=== PATIENT | female | born 1965 | race Two or more races ===

== ENCOUNTER 2021-10-30 11:28 | Outpatient (CLI) | payer OTHER | END 2021-10-30 11:45 | disposition home or self-care (01) | LOC: MRI 11:28 | DX: M43.17 Spondylolisthesis, lumbosacral region (principal); M54.16 Radiculopathy, lumbar region | CPT/HCPCS: 72148; 72158 ==

== ENCOUNTER 2021-11-07 10:29 | Outpatient (CLI) | payer OTHER | END 2021-11-07 10:30 | disposition home or self-care (01) | LOC: LAB 10:29 | DX: I10 Essential (primary) hypertension (principal); Z13.0 Encounter for screening for diseases of the blood and blood-forming organs and certain disorders involving the immune mechanism; E78.2 Mixed hyperlipidemia; R94.6 Abnormal results of thyroid function studies; M79.7 Fibromyalgia; M15.8 Other polyosteoarthritis; E53.8 Deficiency of other specified B group vitamins; M06.4 Inflammatory polyarthropathy; E55.9 Vitamin D deficiency, unspecified; E78.5 Hyperlipidemia, unspecified ==

== ENCOUNTER 2021-11-16 09:29 | Outpatient (CLI) | payer OTHER | END 2021-11-16 09:40 | disposition home or self-care (01) | LOC: MAMO-SONO 09:29 | PROVIDERS: ATTEND Obstetrics & Gynecology | DX: N64.59 Other signs and symptoms in breast (principal); Z12.31 Encounter for screening mammogram for malignant neoplasm of breast; N60.32 Fibrosclerosis of left breast ==

== ENCOUNTER 2022-06-22 11:40 | Outpatient (CLI) | payer OTHER | END 2022-06-22 11:43 | disposition home or self-care (01) | LOC: RAD 11:40 | DX: M43.26 Fusion of spine, lumbar region (principal) ==

== ENCOUNTER 2022-11-01 07:45 | Outpatient (CLI) | payer OTHER | END 2022-11-01 08:00 | disposition home or self-care (01) | LOC: RAD 07:45 | PROVIDERS: ATTEND Orthopaedic Surgery Foot and Ankle Surgery | DX: M43.26 Fusion of spine, lumbar region (principal) ==

== ENCOUNTER 2022-11-28 07:19 | Outpatient (CLI) | payer OTHER | END 2022-11-28 07:20 | disposition home or self-care (01) | LOC: NUCLEAR 07:19 | DX: M19.90 Unspecified osteoarthritis, unspecified site (principal) | CPT/HCPCS: 78315; A9503 ==

== ENCOUNTER 2022-11-28 09:25 | Outpatient (CLI) | payer OTHER | END 2022-11-28 10:07 | disposition home or self-care (01) | LOC: RAD 09:25 | DX: M19.90 Unspecified osteoarthritis, unspecified site (principal); M25.559 Pain in unspecified hip ==

== ENCOUNTER 2022-12-12 13:00 | Outpatient (CLI) | payer OTHER | END 2022-12-12 13:02 | disposition home or self-care (01) | LOC: NUCLEAR 13:00 | DX: Z13.820 Encounter for screening for osteoporosis (principal) ==

== ENCOUNTER 2022-12-12 13:51 | Outpatient (CLI) | payer OTHER | END 2022-12-12 14:02 | disposition home or self-care (01) | LOC: MRI 13:51 | PROVIDERS: ATTEND Orthopaedic Surgery Foot and Ankle Surgery | DX: M43.21 Fusion of spine, occipito-atlanto-axial region (principal) | CPT/HCPCS: 72148 ==

== ENCOUNTER 2023-02-05 07:23 | Outpatient (CLI) | payer OTHER | END 2023-02-05 07:26 | disposition home or self-care (01) | LOC: MAMO-SONO 07:23 | DX: N64.4 Mastodynia (principal) ==

== ENCOUNTER 2023-03-04 07:22 | Outpatient (CLI) | payer OTHER | END 2023-03-04 07:33 | disposition home or self-care (01) | LOC: RAD 07:22 | DX: M25.522 Pain in left elbow (principal); M79.632 Pain in left forearm; M25.532 Pain in left wrist ==

== ENCOUNTER 2023-05-02 08:01 | Outpatient (CLI) | payer OTHER | END 2023-05-02 08:04 | disposition home or self-care (01) | LOC: LAB 08:01 | DX: E78.2 Mixed hyperlipidemia (principal); E53.8 Deficiency of other specified B group vitamins ==

== ENCOUNTER → 2023-05-02 | Outpatient (CLI) | payer OTHER | END | disposition home or self-care (01) | LOC: RAD 08:50 | DX: M25.572 Pain in left ankle and joints of left foot (principal) ==

== ENCOUNTER → 2023-12-20 06:22 | Outpatient (CLI) | payer OTHER ==
[2023-12-20 07:29] LABS: HEMATOCRIT 35.3 % (36.0-45.00); HEMOGLOBIN 12.5 g/dL (12.0-15.00); MEAN CELL VOLUME 90.2 fL (80.00-100.00); MEAN CORPUSCULAR HEMOGLOBIN 31.9 pg (27.00-32.0); MEAN CORPUSCULAR HGB CONC 35.3 g/dl (32.0-36.0); PLATELET COUNT 258 K/uL (150-450); RED BLOOD COUNT 3.92 M/uL (4.00-6.00); RED CELL DISTRIBUTION WIDTH 12.8 % (11.5-14.5)
[2023-12-20 08:00] LABS: URINE APPEARANCE Clear; URINE BILIRRUBIN Negative (NEGATIVE); URINE BLOOD Negative; URINE COLOR Yellow; URINE GLUCOSE Negative (NEGATIVE); URINE LEUKOCYTE Moderate; URINE NITRATE Negative; URINE PROTEIN Negative (NEGATIVE); URINE UROBILINOGEN 0.2 E.U./dl
[2023-12-20 08:05] LABS: URINE BACTERIA 282.2 uL (0.0-1933); URINE RBC 31.6 uL (0.0-20.8); URINE WBC 40.8 uL (0.0-23.2)
[2023-12-20 08:12] LABS: ALBUMIN 3.7 gm/dL (3.4-5.0); BILIRUBIN TOTAL 0.66 mg/dL (0.3-1.2); CALCIUM 8.8 mg/dL (8.5-10.1); CHOL HDL RATIO 3.7 (0-5.0); CREATININE SERUM 0.63 mg/dL (0.55-1.02); GFR 97.4; GLOBULINA 2.8 G/DL (2.4-3.5); POTASSIUM 3.97 mEq/L (3.5-5.1); TOTAL PROTEIN 6.5 gm/dL (6.4-8.2); TSH 2.81 uIU/mL (0.358-3.74)
[2023-12-20 11:20] LABS: FOLIC ACID > 20.00 ng/ml (4.78-20)
== END | disposition home or self-care (01) ==
LOC: LAB 06:22
DX: Z13.0 Encounter for screening for diseases of the blood and blood-forming organs and certain disorders involving the immune mechanism (principal); E78.2 Mixed hyperlipidemia; Z13.1 Encounter for screening for diabetes mellitus; I10 Essential (primary) hypertension; Z12.11 Encounter for screening for malignant neoplasm of colon; E55.9 Vitamin D deficiency, unspecified; E53.8 Deficiency of other specified B group vitamins; M79.7 Fibromyalgia

== ENCOUNTER → 2023-12-23 | Outpatient (CLI) | payer OTHER ==
[2023-12-23 12:05] LABS: ob NEGATIVE (NEGATIVE)
== END | disposition home or self-care (01) ==
LOC: LAB 07:24
DX: Z13.0 Encounter for screening for diseases of the blood and blood-forming organs and certain disorders involving the immune mechanism (principal); E78.2 Mixed hyperlipidemia; Z13.1 Encounter for screening for diabetes mellitus; I10 Essential (primary) hypertension; Z12.11 Encounter for screening for malignant neoplasm of colon; E55.9 Vitamin D deficiency, unspecified; E53.8 Deficiency of other specified B group vitamins; M79.7 Fibromyalgia

== ENCOUNTER 2024-01-30 09:49 | Outpatient (CLI) | payer OTHER | END 2024-01-30 09:54 | disposition home or self-care (01) | LOC: RAD 09:49 | DX: M25.511 Pain in right shoulder (principal); M25.512 Pain in left shoulder ==

== ENCOUNTER 2024-06-27 08:40 | Outpatient (CLI) | payer OTHER ==
[2024-06-27 09:16] LABS: URINE APPEARANCE Clear; URINE BILIRRUBIN Negative (NEGATIVE); URINE BLOOD Negative; URINE COLOR Dark Yellow; URINE GLUCOSE Negative (NEGATIVE); URINE LEUKOCYTE Small; URINE NITRATE Negative; URINE PROTEIN Negative (NEGATIVE); URINE UROBILINOGEN 0.2 E.U./dl
[2024-06-27 09:20] LABS: URINE BACTERIA 70.5 uL (0.0-1933); URINE EPITHELIAL CELLS 15.2 uL (0.0-38.8); URINE RBC 13.2 uL (0.0-20.8); URINE WBC 21.1 uL (0.0-23.2)
[2024-06-27 09:30] LABS: HEMATOCRIT 38.2 % (36.0-45.00); HEMOGLOBIN 13.4 g/dL (12.0-15.00); MEAN CELL VOLUME 90.3 fL (80.00-100.00); MEAN CORPUSCULAR HEMOGLOBIN 31.6 pg (27.00-32.0); MEAN CORPUSCULAR HGB CONC 34.9 g/dl (32.0-36.0); PLATELET COUNT 270 K/uL (150-450); RED BLOOD COUNT 4.23 M/uL (4.00-6.00); RED CELL DISTRIBUTION WIDTH 13.1 % (11.5-14.5)
[2024-06-27 10:21] LABS: BILIRUBIN TOTAL 0.61 mg/dL (0.3-1.2); CHOL HDL RATIO 3.1 (0-5.0); CREATININE SERUM 0.59 mg/dL (0.55-1.02); GFR 104.69; POTASSIUM 4.46 mEq/L (3.5-5.1); TSH 3.99 uIU/mL (0.358-3.74)
== END 2024-06-27 08:46 | disposition home or self-care (01) ==
LOC: LAB 08:40
DX: Z13.0 Encounter for screening for diseases of the blood and blood-forming organs and certain disorders involving the immune mechanism (principal); E78.2 Mixed hyperlipidemia; R73.9 Hyperglycemia, unspecified; I10 Essential (primary) hypertension; R94.6 Abnormal results of thyroid function studies

== ENCOUNTER 2024-07-08 07:09 | Outpatient (CLI) | payer OTHER | END 2024-07-08 07:15 | disposition home or self-care (01) | LOC: MAMO-SONO 07:09 | DX: N64.4 Mastodynia (principal); Z12.39 Encounter for other screening for malignant neoplasm of breast ==

== ENCOUNTER 2024-08-12 06:51 | Outpatient (CLI) | payer OTHER ==
[2024-08-12 07:38] LABS: URINE APPEARANCE Clear; URINE BILIRRUBIN Negative (NEGATIVE); URINE BLOOD Negative; URINE COLOR Dark Yellow; URINE GLUCOSE Negative (NEGATIVE); URINE KETONE Negative (NEGATIVE); URINE LEUKOCYTE Moderate; URINE NITRATE Negative; URINE PROTEIN Negative (NEGATIVE); URINE UROBILINOGEN 0.2 E.U./dl
[2024-08-12 07:41] LABS: URINE BACTERIA 84.3 uL (0.0-1933); URINE EPITHELIAL CELLS 10.4 uL (0.0-38.8)
[2024-08-12 08:16] LABS: HEMOGLOBIN 12.6 g/dL (12.0-15.00); MEAN CELL VOLUME 93.5 fL (80.00-100.00); MEAN CORPUSCULAR HEMOGLOBIN 32.7 pg (27.00-32.0); MEAN CORPUSCULAR HGB CONC 34.9 g/dl (32.0-36.0); PLATELET COUNT 267 K/uL (150-450); RED BLOOD COUNT 3.85 M/uL (4.00-6.00)
[2024-08-12 08:40] LABS: ERYTHROCYTE SEDIMENTATION RATE < 1 mm/hr
[2024-08-12 09:00] LABS: ALBUMIN 3.9 gm/dL (3.4-5.0); ALKALINE PHOSPHATASE 56 U/L (50-136); ALT/SGPT 24 U/L (12-78); ANION GAP 7 (10.0-20.0); AST/SGOT 11 U/L (15-37); BILIRUBIN TOTAL 0.71 mg/dL (0.3-1.2); BLOOD UREA NITROGEN 12 mg/dL (7-18); BUN CREA RATIO 18 (7.0-25.0); CALCIUM 9.3 mg/dL (8.5-10.1); CARBON DIOXIDE 31 mEq/L (21-32); CHLORIDE 110 mmol/L (98-107); CREATININE SERUM 0.68 mg/dL (0.55-1.02); GFR 88.87; GLOBULINA 3.1 G/DL (2.4-3.5); GLUCOSE FASTING 100 mg/dL (65-100); OSMOLALITY SERUM 287 MOSM/KG (275-295); POTASSIUM 4.37 mEq/L (3.5-5.1); SODIUM 144 mmol/L (136-145)
[2024-08-12 09:02] LABS: C-REACTIVE PROTEIN < 0.29 MG/DL (0.00-0.29)
== END 2024-08-12 06:52 | disposition home or self-care (01) ==
LOC: LAB 06:51
DX: M25.50 Pain in unspecified joint (principal); M06.9 Rheumatoid arthritis, unspecified

== ENCOUNTER → 2024-10-03 09:27 | Outpatient (CLI) | payer OTHER ==
[2024-10-03 11:11] LABS: HEMATOCRIT 40.8 % (36.0-45.00); HEMOGLOBIN 14.1 g/dL (12.0-15.00); MEAN CELL VOLUME 91.2 fL (80.00-100.00); MEAN CORPUSCULAR HEMOGLOBIN 31.4 pg (27.00-32.0); MEAN CORPUSCULAR HGB CONC 34.5 g/dl (32.0-36.0); PLATELET COUNT 284 K/uL (150-450); RED BLOOD COUNT 4.47 M/uL (4.00-6.00); RED CELL DISTRIBUTION WIDTH 12.8 % (11.5-14.5)
[2024-10-03 11:18] LABS: PH,URINE 5.5 (5.0-8.0); URINE APPEARANCE Clear; URINE BILIRRUBIN Small (NEGATIVE); URINE BLOOD Negative; URINE COLOR Dark Yellow; URINE GLUCOSE Negative (NEGATIVE); URINE KETONE Trace (NEGATIVE); URINE LEUKOCYTE Moderate; URINE NITRATE Negative; URINE PROTEIN Trace (NEGATIVE); URINE UROBILINOGEN 0.2 E.U./dl
[2024-10-03 11:47] LABS: ALBUMIN 4.3 gm/dL (3.4-5.0); ALKALINE PHOSPHATASE 72 U/L (50-136); ALT/SGPT 26 U/L (12-78); ANION GAP 8 (10.0-20.0); AST/SGOT 14 U/L (15-37); BILIRUBIN TOTAL 0.72 mg/dL (0.3-1.2); BLOOD UREA NITROGEN 10 mg/dL (7-18); BUN CREA RATIO 13 (7.0-25.0); CALCIUM 9.9 mg/dL (8.5-10.1); CARBON DIOXIDE 30 mEq/L (21-32); CHLORIDE 108 mmol/L (98-107); CREATININE SERUM 0.76 mg/dL (0.55-1.02); GFR 78.16; GLUCOSE FASTING 92 mg/dL (65-100); OSMOLALITY SERUM 282 MOSM/KG (275-295); POTASSIUM 4.33 mEq/L (3.5-5.1); SODIUM 142 mmol/L (136-145); TOTAL PROTEIN 7.3 gm/dL (6.4-8.2)
[2024-10-03 11:48] LABS: C-REACTIVE PROTEIN < 0.29 MG/DL (0.00-0.29)
[2024-10-03 11:56] LABS: URINE BACTERIA 302.3 uL (0.0-1933); URINE EPITHELIAL CELLS 19.3 uL (0.0-38.8); URINE RBC 14.8 uL (0.0-20.8); URINE WBC 83.9 uL (0.0-23.2)
[2024-10-03 12:03] LABS: ERYTHROCYTE SEDIMENTATION RATE 1 mm/hr
== END | disposition home or self-care (01) ==
LOC: LAB 09:27
DX: M25.50 Pain in unspecified joint (principal); M06.9 Rheumatoid arthritis, unspecified

== ENCOUNTER 2024-12-25 07:14 | Outpatient (CLI) | payer OTHER ==
[2024-12-25 08:06] LABS: HEMATOCRIT 37.7 % (36.0-45.00); HEMOGLOBIN 13.3 g/dL (12.0-15.00); MEAN CORPUSCULAR HGB CONC 35.2 g/dl (32.0-36.0); PLATELET COUNT 256 K/uL (150-450); RED BLOOD COUNT 4.14 M/uL (4.00-6.00); RED CELL DISTRIBUTION WIDTH 13.4 % (11.5-14.5)
[2024-12-25 08:15] LABS: ERYTHROCYTE SEDIMENTATION RATE < 1 mm/hr
[2024-12-25 08:18] LABS: PH,URINE 5.5 (5.0-8.0); URINE APPEARANCE Clear; URINE BILIRRUBIN Negative (NEGATIVE); URINE BLOOD Negative; URINE COLOR Dark Yellow; URINE GLUCOSE Negative (NEGATIVE); URINE KETONE Negative (NEGATIVE); URINE LEUKOCYTE Small; URINE NITRATE Negative; URINE PROTEIN Negative (NEGATIVE); URINE UROBILINOGEN 0.2 E.U./dl
[2024-12-25 08:22] LABS: URINE BACTERIA 274.1 uL (0.0-1933); URINE EPITHELIAL CELLS 13.2 uL (0.0-38.8); URINE RBC 10.3 uL (0.0-20.8); URINE WBC 14.7 uL (0.0-23.2)
[2024-12-25 08:29] LABS: URINE CAST 0.44 uL (0.0-1.40)
[2024-12-25 09:25] LABS: ALBUMIN 3.8 gm/dL (3.4-5.0); ALKALINE PHOSPHATASE 63 U/L (50-136); ALT/SGPT 21 U/L (12-78); ANION GAP 7 (10.0-20.0); AST/SGOT 9 U/L (15-37); BILIRUBIN TOTAL 0.65 mg/dL (0.3-1.2); BLOOD UREA NITROGEN 12 mg/dL (7-18); BUN CREA RATIO 18 (7.0-25.0); CALCIUM 9.2 mg/dL (8.5-10.1); CARBON DIOXIDE 31 mEq/L (21-32); CHLORIDE 110 mmol/L (98-107); CHOL HDL RATIO 2.5 (0-5.0); CHOLESTEROL 180 mg/dL (0-200); CREATININE SERUM 0.68 mg/dL (0.55-1.02); GFR 88.87; GLUCOSE FASTING 88 mg/dL (65-100); HDL 72 mg/dl (40-60); LDL 82 mg/dl (0-130); OSMOLALITY SERUM 286 MOSM/KG (275-295); POTASSIUM 4.25 mEq/L (3.5-5.1); SODIUM 144 mmol/L (136-145); TOTAL PROTEIN 6.8 gm/dL (6.4-8.2); TRIGLYCERIDES 129 mg/dL (0-150); VLDL 25 (0-39)
[2024-12-25 09:26] LABS: C-REACTIVE PROTEIN < 0.29 MG/DL (0.00-0.29)
[2024-12-25 09:38] LABS: ob NEGATIVE (NEGATIVE)
[2024-12-25 11:24] LABS: FOLIC ACID 16.32 ng/ml (4.78-20); VITAMIN D3 25 HYDROXY 37.28 ng/ml (30-120)
== END 2024-12-25 07:15 | disposition home or self-care (01) ==
LOC: LAB 07:14
DX: R73.9 Hyperglycemia, unspecified (principal); Z13.0 Encounter for screening for diseases of the blood and blood-forming organs and certain disorders involving the immune mechanism; E78.2 Mixed hyperlipidemia; R94.6 Abnormal results of thyroid function studies; Z12.11 Encounter for screening for malignant neoplasm of colon; E55.9 Vitamin D deficiency, unspecified; E53.8 Deficiency of other specified B group vitamins; M06.9 Rheumatoid arthritis, unspecified

== ENCOUNTER 2025-02-24 07:21 | Outpatient (CLI) | payer OTHER | END 2025-02-24 07:25 | disposition home or self-care (01) | LOC: SONOGRAMA 07:21 | DX: N83.202 Unspecified ovarian cyst, left side (principal); N83.201 Unspecified ovarian cyst, right side ==

== ENCOUNTER 2025-03-08 09:25 | Outpatient (CLI) | payer OTHER | END 2025-03-08 09:26 | disposition home or self-care (01) | LOC: NUCLEAR 09:25 | PROVIDERS: ATTEND Obstetrics & Gynecology | DX: M81.0 Age-related osteoporosis without current pathological fracture (principal) ==

== ENCOUNTER 2025-04-09 08:54 | Outpatient (CLI) | payer OTHER ==
[2025-04-09 09:40] LABS: PH,URINE 6.5 (5.0-8.0); URINE APPEARANCE Clear; URINE BILIRRUBIN Negative (NEGATIVE); URINE BLOOD Negative; URINE COLOR Yellow; URINE GLUCOSE Negative (NEGATIVE); URINE KETONE Negative (NEGATIVE); URINE LEUKOCYTE Trace; URINE NITRATE Negative; URINE PROTEIN Negative (NEGATIVE); URINE UROBILINOGEN 0.2 E.U./dl
[2025-04-09 09:43] LABS: URINE BACTERIA 46.5 uL (0.0-1933); URINE EPITHELIAL CELLS 5.6 uL (0.0-38.8)
[2025-04-09 10:02] LABS: HEMATOCRIT 37.1 % (36.0-45.00); HEMOGLOBIN 13.2 g/dL (12.0-15.00); MEAN CELL VOLUME 92.4 fL (80.00-100.00); MEAN CORPUSCULAR HEMOGLOBIN 32.8 pg (27.00-32.0); MEAN CORPUSCULAR HGB CONC 35.5 g/dl (32.0-36.0); PLATELET COUNT 241 K/uL (150-450); RED BLOOD COUNT 4.02 M/uL (4.00-6.00); RED CELL DISTRIBUTION WIDTH 12.7 % (11.5-14.5)
[2025-04-09 10:14] LABS: ERYTHROCYTE SEDIMENTATION RATE < 1 mm/hr
[2025-04-09 11:17] LABS: ALKALINE PHOSPHATASE 68 U/L (50-136); ALT/SGPT 30 U/L (12-78); ANION GAP 7 (10.0-20.0); AST/SGOT 18 U/L (15-37); BILIRUBIN TOTAL 0.89 mg/dL (0.3-1.2); BLOOD UREA NITROGEN 10 mg/dL (7-18); BUN CREA RATIO 17 (7.0-25.0); CALCIUM 8.8 mg/dL (8.5-10.1); CARBON DIOXIDE 31 mEq/L (21-32); CHLORIDE 111 mmol/L (98-107); GFR 102.32; GLOBULINA 2.7 G/DL (2.4-3.5); GLUCOSE FASTING 96 mg/dL (65-100); OSMOLALITY SERUM 288 MOSM/KG (275-295); POTASSIUM 4.21 mEq/L (3.5-5.1); SODIUM 145 mmol/L (136-145); TOTAL PROTEIN 6.7 gm/dL (6.4-8.2)
[2025-04-09 11:18] LABS: C-REACTIVE PROTEIN < 0.29 MG/DL (0.00-0.29)
== END 2025-04-09 08:55 | disposition home or self-care (01) ==
LOC: LAB 08:54
PROVIDERS: ATTEND Internal Medicine Rheumatology
DX: M06.9 Rheumatoid arthritis, unspecified (principal)

== ENCOUNTER 2025-07-29 07:15 | Outpatient (CLI) | payer OTHER | END 2025-07-29 07:22 | disposition home or self-care (01) | LOC: MAMO-SONO 07:15 | PROVIDERS: ATTEND Obstetrics & Gynecology | DX: N60.29 Fibroadenosis of unspecified breast (principal) ==